=== PATIENT | male | born 1995 | race African-American/Black ===

== ENCOUNTER 2017-03-30 13:54 | Emergency (ER) | payer SELFPAY ==
[~2017-03-30] VITALS: Ht 188 cm; Wt 115.7 kg
--- NOTE | 2017-03-30 14:30 | ED EENT ---
History of Present Illness General Chief Complaint: Oral/Throat Problems Stated Complaint: SORE THROAT,FEVER Nursing Triage Note: ARRIVED VIA AMB TO ROOM 08 WITH COMPLAINTS OF FEVER, SORE THROAT, AND HEADACHE STARTING LAST NOC. Source: patient, other (significant other) Exam Limitations: no limitations History of Present Illness Time seen by provider: 14:29 Initial Comments 22-year-old male patient presents to the emergency department with complaints of fever and sore throat beginning Friday. Initially had reported onset as last night, but significant other reports symptoms actually began Friday morning. States his fever was 104 degrees last night. Patient is able to tolerated solids and liquids. Timing/Duration: abrupt, other (onset on Friday morning.) Location: throat Prearrival Treatment: over the counter meds (last dose of tylenol or motrin was last night.) Presenting Symptoms/Injuries: fever and sore throat Modifying Factors: Worse With Other (worse with swallowing) Allergies and Home Medications Allergies Coded Allergies: No Known Drug Allergies (Unverified , 03/30/17) Home Medications Cefdinir 300 Mg Capsule, 300 MG PO BID, #20 Ref 0 Prescribed by: NEERAJ FLORES on 03/30/17 1533 Tramadol HCl 50 Mg Tablet, 50 MG PO Q6H PRN for pain, #10 Ref 0 Prescribed by: NEERAJ FLORES on 03/30/17 1708 Review of Systems Constitutional: chills, fever, malaise Eyes: No Symptoms Reported Ears: No Symptoms Reported Nose: no symptoms reported Mouth: no symptoms reported Throat: see HPI, pain, swelling (tonsillar swelling), denies neck stiffness, painful swallowing, denies difficulty with fluids Respiratory: No cough, No short of breath, No stridor, No wheezing Cardiovascular: no symptoms reported Gastrointestinal: No abdominal pain, No constipation, No diarrhea, loss of appetite, No nausea, No vomiting Musculoskeletal: no symptoms reported Skin: no symptoms reported Neurological: No Symptoms Reported, Headache Immunological/Allergic: no symptoms reported All Other Systems Reviewed Negative Unless Noted: Yes (Negative excepted noted.) Past Hrwtfrn-Jtxhrp-Csqwjk Hx Patient Social History Alcohol Use: Occasionally Uses Recreational Drug Use: Yes Drug of Choice: POT Smoking Status: Never a Smoker Recent Foreign Travel: No Contact w/Someone Who Travel: No Recent Infectious Disease Expo: No Recent Hopitalizations: No Surgeries History of Surgeries: No Respiratory History of Respiratory Disorde: No Cardiovascular History of Cardiac Disorders: No Neurological History of Neurological Disord: No Genitourinary History of Genitourinary Disor: No Gastrointestinal History of Gastrointestinal Di: No Musculoskeletal History of Musculoskeletal Dis: No Endocrine History of Endocrine Disorders: No HEENT History of HEENT Disorders: No Cancer History of Cancer: No Psychosocial History of Psychiatric Problem: No Integumentary History of Skin or Integumenta: No Reviewed Nursing Assessment Reviewed/Agree w Nursing PMH: Yes Family Medical History Significant Family History: No Pertinent Family Hx Physical Exam Vital Signs Vital Sign - Last 12Hours 03/30/17 14:20 Temp 101.9 Pulse 101 Resp 16 B/P (MAP) 147/85 Pulse Ox 100 O2 Delivery Room Air General Appearance: WD/WN, no apparent distress Eyes: bilateral eye normal inspection, bilateral eye PERRL, bilateral eye EOMI Ears: bilateral ear auricle normal, bilateral ear canal normal, bilateral ear TM normal Nose: normal inspection Mouth/Throat: normal mouth inspection, tonsillar exudate, tonsillar swelling, No trismus, No uvula swelling, No voice changes, other (pharyngeal erythema noted.) Neck: full range of motion, supple, other (bilateral anterior cervical lymphadenopathy, tender to palpation.) Cardiovascular: normal peripheral pulses, no edema, no murmur, tachycardia Respiratory: lungs clear, normal breath sounds, no respiratory distress, no accessory muscle use Gastrointestinal: non tender, soft Neurologic/Psychiatric: alert, normal mood/affect, oriented x 3 Skin: normal color, warm/dry Progress/Results/Core Measures Results/Orders Lab Results Laboratory Tests Test 03/30/17 14:25 03/30/17 14:50 03/30/17 16:30 Range/Units Group A Streptococcus Screen NEGATIVE NEGATIVE White Blood Count 11.3 H 4.3-11.0 10^3/uL Red Blood Count 5.02 4.35-5.85 10^6/uL Hemoglobin 14.0 13.3-17.7 G/DL Hematocrit 41 40-54 % Mean Corpuscular Volume 81 80-99 FL Mean Corpuscular Hemoglobin 28 25-34 PG Mean Corpuscular Hemoglobin Concent 34 32-36 G/DL Red Cell Distribution Width 12.7 10.0-14.5 % Platelet Count 203 130-400 10^3/uL Mean Platelet Volume 9.6 7.4-10.4 FL Neutrophils (%) (Auto) 84 H 42-75 % Lymphocytes (%) (Auto) 7 L 12-44 % Monocytes (%) (Auto) 9 0-12 % Eosinophils (%) (Auto) 0 0-10 % Basophils (%) (Auto) 0 0-10 % Neutrophils # (Auto) 9.5 H 1.8-7.8 X 10^3 Lymphocytes # (Auto) 0.8 L 1.0-4.0 X 10^3 Monocytes # (Auto) 1.0 0.0-1.0 X 10^3 Eosinophils # (Auto) 0.0 0.0-0.3 10^3/uL Basophils # (Auto) 0.0 0.0-0.1 10^3/uL Neutrophils % (Manual) 81 % Lymphocytes % (Manual) 14 % Monocytes % (Manual) 4 % Basophils % (Manual) 1 % Blood Morphology Comment NORMAL Prothrombin Time 14.6 12.2-14.7 SEC INR Comment 1.1 0.8-1.4 Activated Partial Thromboplast Time 34 24-35 SEC Sodium Level 136 135-145 MMOL/L Potassium Level 3.4 L 3.6-5.0 MMOL/L Chloride Level 103 98-107 MMOL/L Carbon Dioxide Level 20 L 21-32 MMOL/L Anion Gap 13 5-14 MMOL/L Blood Urea Nitrogen 10 7-18 MG/DL Creatinine 1.15 0.60-1.30 MG/DL Estimat Glomerular Filtration Rate > 60 BUN/Creatinine Ratio 9 Glucose Level 87 70-105 MG/DL Lactic Acid Level 1.66 0.50-2.00 MMOL/L Calcium Level 9.7 8.5-10.1 MG/DL Total Bilirubin 1.7 H 0.1-1.0 MG/DL Aspartate Amino Transf (AST/SGOT) 18 5-34 U/L Alanine Aminotransferase (ALT/SGPT) 23 0-55 U/L Alkaline Phosphatase 82 40-136 U/L Total Protein 7.6 6.4-8.2 GM/DL Albumin 4.2 3.2-4.5 GM/DL Urine Color YELLOW Urine Clarity CLEAR Urine pH 8 5-9 Urine Specific Cooks 1.010 L 1.016-1.022 Urine Protein 1+ H NEGATIVE Urine Glucose (UA) NEGATIVE NEGATIVE Urine Ketones 1+ H NEGATIVE Urine Nitrite NEGATIVE NEGATIVE Urine Bilirubin NEGATIVE NEGATIVE Urine Urobilinogen 8 H NORMAL MG/DL Urine Leukocyte Esterase 1+ H NEGATIVE Urine RBC (Auto) NEGATIVE NEGATIVE Urine RBC NONE /HPF Urine WBC 2-5 /HPF Urine Squamous Epithelial Cells 5-10 /HPF Urine Crystals NONE /LPF Urine Bacteria NEGATIVE /HPF Urine Casts NONE /LPF Urine Mucus NEGATIVE /LPF Urine Culture Indicated NO My Orders Orders - NEERAJ FLORES Rapid Strep A Screen (03/30/17 14:18) Cbc With Automated Diff (03/30/17 14:36) Comprehensive Metabolic Panel (03/30/17 14:36) Lactic Acid Analyzer (03/30/17 14:36) Blood Culture (03/30/17 14:36) Ua Culture If Indicated (03/30/17 14:36) Protime With Inr (03/30/17 14:36) Partial Thromboplastin Time (03/30/17 14:36) O2 (03/30/17 14:36) Acetaminophen Tablet (Tylenol Tablet) (03/30/17 14:45) Saline Lock/Iv-Start (03/30/17 14:36) Ns Iv 1000 Ml (Sodium Chloride 0.9%) (03/30/17 14:45) Vital Signs Adult Sepsis Patie Q1HR (03/30/17 14:36) Ceftriaxone Injection (Rocephin Injectio (03/30/17 14:36) Ketorolac Injection (Toradol Injection) (03/30/17 14:36) Manual Differential (03/30/17 14:50) General/Regular (03/30/17 Lunch) Medications Given in ED Current Medications Medications Dose Ordered Sig/Jack Route Start Time Stop Time Status Last Admin Dose Admin Acetaminophen 1,000 mg ONCE PRN PO 03/30/17 14:45 03/30/17 14:51 DC 03/30/17 14:51 1,000 MG Sodium Chloride 3,500 ml @ 1,750 mls/hr PRN PRN IV 03/30/17 14:45 03/30/17 17:15 DC 03/30/17 15:02 1,750 MLS/HR Vital Signs/I&O Vital Sign - Last 12Hours 03/30/17 03/30/17 14:20 17:15 Temp 101.9 98.9 Pulse 101 96 Resp 16 18 B/P (MAP) 147/85 Pulse Ox 100 96 O2 Delivery Room Air Blood Pressure Mean: 105 Departure Communication (Admissions) Progress Notes All laboratory findings were discussed with the patient. Patient reports feeling better with medications and IV fluids. Patient was given 1 g Rocephin IV while in the emergency department. Patient was able to eat and drink in the emergency department without difficulty. Plan for discharge to home. All return precautions were discussed with the patient as described in the discharge instructions of this report. Patient voices understanding and agrees with the treatment plan. Impression Impression: Primary Impression: Acute tonsillitis, unspecified Qualified Codes: J03.90 - Acute tonsillitis, unspecified Additional Impression: Volume depletion Disposition: HOME, SELF-CARE Condition: Improved Departure-Patient Inst. Decision time for Depature: 15:32 Referrals: NO,LOCAL PHYSICIAN (PCP/Family) Primary Care Physician Patient Instructions: Strep Throat (DC) Add. Discharge Instructions: All discharge instructions reviewed with patient and/or family. Voiced understanding. Medications as directed. Tylenol extra strength over-the- counter as directed by the steam finisher for pain, headache, or fever. Ibuprofen 800 mg by mouth every 8 hours as needed for pain, headache, or fever. Drink plenty of fluids. Warm salt water gargles as needed for pain. Over-the -counter throat lozenges and sprays as needed. Follow-up with your family practitioner of choice for recheck if no improvement in symptoms. Return to the emergency department for worsened pain, fever, difficulty swallowing, difficulty breathing, or any other concerns. Scripts Tramadol HCl (Tramadol HCl) 50 Mg Tablet 50 MG PO Q6H Y for pain, #10 TAB 0 Refills Prov: NEERAJ FLORES 03/30/17 Cefdinir (Cefdinir) 300 Mg Capsule 300 MG PO BID, #20 CAP 0 Refills Prov: NEERAJ FLORES 03/30/17 Work/School Note: Local Medical Staff Listing, Work Release Form Date Seen in the Emergency Department: Mar 30, 2017 Return to Work: Apr 01, 2017 Restrictions: Return-No Fever (24hrs) NEERAJ FLORES Mar 30, 2017 14:30
[2017-03-30] MEDS ORDERED: KETOROLAC 30 MG/ML VIAL IVP STA (14:36)
[2017-03-30] MEDS ORDERED: cefTRIAXone 1 GM (ROCEPHIN) VIAL IV STA (14:36)
[2017-03-30] MEDS ORDERED: NS IV 1000 ML 3,500 ML IV PRN (14:45)
[2017-03-30] MEDS ORDERED: ACETAMINOPHEN 500 MG TAB (TYLENOL) PO PRN (14:45)
[2017-03-30 15:03] LABS: BASOPHILS % (AUTO) 0 % (0-10); EOSINOPHILS % (AUTO) 0 % (0-10); LYMPHOCYTES # (AUTO) 0.8 X 10^3 (1.0-4.0); LYMPHOCYTES % (AUTO) 7 % (12-44); MEAN CORPUSCULAR HEMOGLOBIN 28 PG (25-34); MEAN CORPUSCULAR HGB CONC 34 G/DL (32-36); MEAN CORPUSCULAR VOLUME 81 FL (80-99); MEAN PLATELET VOLUME 9.6 FL (7.4-10.4); MONOCYTES % (AUTO) 9 % (0-12); NEUTROPHILS # (AUTO) 9.5 X 10^3 (1.8-7.8); NEUTROPHILS % (AUTO) 84 % (42-75); PLATELET COUNT 203 10^3/uL (130-400); RED BLOOD COUNT 5.02 10^6/uL (4.35-5.85); RED CELL DISTRIBUTION WIDTH 12.7 % (10.0-14.5); WHITE BLOOD COUNT 11.3 10^3/uL (4.3-11.0)
[2017-03-30 15:16] LABS: INR 1.1 (0.8-1.4); PROTHROMBIN TIME PATIENT 14.6 SEC (12.2-14.7)
[2017-03-30 15:27] LABS: ALANINE AMINOTRANSFERASE 23 U/L (0-55); ALBUMIN 4.2 GM/DL (3.2-4.5); ANION GAP 13 MMOL/L (5-14); ASPARTATE AMINO TRANSFERASE 18 U/L (5-34); BILIRUBIN,TOTAL 1.7 MG/DL (0.1-1.0); BLOOD UREA NITROGEN 10 MG/DL (7-18); BUN/CREATININE RATIO 9; CALCIUM 9.7 MG/DL (8.5-10.1); CARBON DIOXIDE 20 MMOL/L (21-32); CHLORIDE 103 MMOL/L (98-107); CREATININE SERUM 1.15 MG/DL (0.60-1.30); GFR ESTIMATED > 60; GLUCOSE 87 MG/DL (70-105); POTASSIUM 3.4 MMOL/L (3.6-5.0); SODIUM 136 MMOL/L (135-145); TOTAL PROTEIN 7.6 GM/DL (6.4-8.2)
[2017-03-30] MEDS ORDERED: CEFD300C3 PO (15:33)
[2017-03-30 15:43] LABS: BASOPHILS % (MANUAL) 1 %; LYMPHOCYTES % (MANUAL) 14 %; NEUTROPHILS % (MANUAL) 81 %
[2017-03-30 16:40] LABS: BILIRUBIN,URINE NEGATIVE (NEGATIVE); KETONES,URINE 1+ (NEGATIVE); LEUKOCYTE ESTERASE ,URINE 1+ (NEGATIVE); NITRITE,URINE NEGATIVE (NEGATIVE); PH,URINE 8 (5-9); PROTEIN,URINE 1+ (NEGATIVE); UROBILINOGEN,URINE 8 MG/DL (NORMAL)
[2017-03-30] MEDS ORDERED: TRAM50TA2 PO (17:08)
[2017-03-30 17:15] VITALS: BP 145/76
== END 2017-03-30 17:15 | disposition home or self-care (01) ==
LOC: ER 13:59
DX: J03.90 Acute tonsillitis, unspecified (principal); E86.9 Volume depletion, unspecified
CPT/HCPCS: 36415; 80053; 81000; 83605; 85007; 85027; 85610; 85730; 87040; 87430; 96361; 96365; 96375

== ENCOUNTER 2021-03-12 20:03 | Emergency (ER) | payer SELFPAY ==
[~2021-03-12] VITALS: Ht 187.9 cm; Wt 145.0 kg
[~2021-03-12 20:03] MED LIST: CEFD300C3 PO; TRM50T PO
--- NOTE | 2021-03-12 20:43 | ED General ---
General Stated Complaint: FEVER/BODY ACHES/TONGUE SORES Source of Information: Patient Exam Limitations: No Limitations History of Present Illness Date Seen by Provider: Mar 12, 2021 Time Seen by Provider: 20:43 Initial Comments To ER with fever body aches diarrhea sores on his tongue. This began on Friday he was seen at [facility] and had a negative Covid negative strep test. Comes in today for failure to improve. Temperature up to 102 currently. Timing/Duration: 1-2 Days Severity: Moderate Associated Systoms: Denies Symptoms Allergies and Home Medications Allergies Coded Allergies: No Known Drug Allergies (Unverified , 03/30/17) Home Medications Cefdinir 300 Mg Capsule, 300 MG PO BID Prescribed by: NEERAJ FLORES on 03/30/17 1533 Tramadol HCl 50 Mg Tablet, 50 MG PO Q6H PRN for pain Prescribed by: NEERAJ FLORSE on 03/30/17 1708 Patient Home Medication List Home Medication List Reviewed: Yes Review of Systems Review of Systems Constitutional: see HPI EENTM: see HPI, throat pain Respiratory: no symptoms reported Cardiovascular: no symptoms reported Genitourinary: no symptoms reported Musculoskeletal: no symptoms reported Skin: no symptoms reported Psychiatric/Neurological: No Symptoms Reported Hematologic/Lymphatic: No Symptoms Reported Immunological/Allergic: no symptoms reported Past Izyqwlr-Xgfvss-Crcofx Hx Past Medical History Surgeries: No Respiratory: No Cardiac: No Neurological: No Genitourinary: No Gastrointestinal: No Musculoskeletal: No Endocrine: No HEENT: No Cancer: No Psychosocial: No Integumentary: No Family Medical History No Pertinent Family Hx Physical Exam Vital Signs Vital Signs - First Documented 03/12/21 20:27 Temp 39.0 Pulse 104 Resp 20 B/P (MAP) 173/101 (125) Pulse Ox 97 O2 Delivery Room Air Capillary Refill : Height, Weight, BMI Height: 6'2.00" Weight: 255lbs. oz. [id number]; BMI Method:Stated General Appearance: No Apparent Distress, WD/WN Eyes: Bilateral Eye Normal Inspection, Bilateral Eye PERRL, Bilateral Eye EOMI HEENT: PERRL/EOMI, TMs Normal, Other (He did test positive for strep but is oropharynx does not have the typical appearance of strep. There are ulcerative lesions with an erythematous border on the lateral aspects of the tongue and on the soft palate and tonsillar pillars. This looks like a herpetic stomatitis.) Neck: Lymphadenopathy (L), Lymphadenopathy (R) Respiratory: No Accessory Muscle Use, No Respiratory Distress Gastrointestinal: Non Tender, Soft Extremity: Normal Capillary Refill, Normal Inspection Neurologic/Psychiatric: Alert, Oriented x3 Skin: Normal Color, Warm/Dry Progress/Results/Core Measures Suspected Sepsis SIRS Temperature: Pulse: Respiratory Rate: Blood Pressure / Mean: Results/Orders Lab Results Laboratory Tests Test 03/12/21 20:35 Range/Units Influenza Type A (RT-PCR) Not Detected Not Detecte Influenza Type B (RT-PCR) Not Detected Not Detecte SARS-CoV-2 RNA (RT-PCR) Not Detected Not Detecte Group A Streptococcus Screen POSITIVE H NEGATIVE My Orders Orders - MIKALA OLIVER APRN Covid 19 Inhouse Test (03/12/21 20:32) Rapid Strep A Screen (03/12/21 20:32) Influenza A And B By Pcr (03/12/21 20:32) Ed Iv/Invasive Line Start (03/12/21 20:32) Ibuprofen Tablet (Motrin Tablet) (03/12/21 20:45) Penicillin Vk Tablet (Veetid Tablet) (03/12/21 21:15) Prednisone Tablet (Deltasone Tablet) (03/12/21 21:15) Acyclovir Capsule/Tablet (Zovirax Caps (03/12/21 21:15) Antacid Suspension (Mylanta Suspension (03/12/21 21:15) Lidocaine 2% Viscous 15 Ml (Xylocaine Vi (03/12/21 21:15) Medications Given in ED Current Medications Medications Dose Ordered Sig/Jack Route Start Time Stop Time Status Last Admin Dose Admin Ibuprofen 800 mg ONCE ONCE PO 03/12/21 20:45 03/12/21 20:46 DC 03/12/21 20:47 800 MG Vital Signs/I&O 03/12/21 03/12/21 20:27 20:47 Temp 39.0 38.9 Pulse 104 Resp 20 B/P (MAP) 173/101 (125) Pulse Ox 97 O2 Delivery Room Air Capillary Refill : Departure Impression Primary Impression: Herpetic stomatitis Additional Impression: Streptococcal pharyngitis Disposition: 01 HOME, SELF-CARE Condition: Stable Departure-Patient Inst. Decision time for Depature: 21:15 Referrals: NO,LOCAL PHYSICIAN (PCP/Family) Primary Care Physician Patient Instructions: Gingivostomatitis, Child (DC), Strep Throat ED Add. Discharge Instructions: 1. Tylenol and ibuprofen for fevers or discomfort. Return to ER for any concerns. Follow-up with your doctor next week. Scripts Prednisone (Prednisone) 20 Mg Tab 40 MG PO DAILY, #6 TAB 0 Refills Prov: MIKALA OLIVER APRN 03/12/21 Amoxicillin (Amoxicillin) 500 Mg Capsule 500 MG PO TID, #21 CAP 0 Refills Prov: MIKALA OLIVER APRN 03/12/21 Acyclovir (Acyclovir) 400 Mg Tablet 400 MG PO 5XD, #15 TAB Prov: MIKALA OLIVER APRN 03/12/21 Work/School Note: Work Release Form Date Seen in the Emergency Department: Mar 12, 2021 Return to Work: Mar 14, 2021 MIKALA OLIVER APRN Mar 12, 2021 20:43
[2021-03-12] MEDS ORDERED: IBUPROFEN 800 MG (MOTRIN) TAB PO ONE (20:45)
[2021-03-12] MEDS ORDERED: ANTACID SUSP 30 ML UDC (MYLANTA) PO ONE (21:15)
[2021-03-12] MEDS ORDERED: ACYCLOVIR 400 MG TABLET (ZOVIRAX) PO SCH (21:15)
[2021-03-12] MEDS ORDERED: LIDOCAINE 2% VISCOUS 15 ML UDC PO ONE (21:15)
[2021-03-12] MEDS ORDERED: predniSONE 20 MG TAB PO ONE (21:15)
[2021-03-12] MEDS ORDERED: PENICILLIN V K 250 MG TAB PO ONE (21:15)
[2021-03-12] MEDS ORDERED: AMOX500C2 PO (21:17)
[2021-03-12] MEDS ORDERED: ACYC400T21 PO (21:17)
[2021-03-12] MEDS ORDERED: PRD20T PO (21:17)
[2021-03-12 22:43] VITALS: BP 156/88
== END 2021-03-12 21:30 | disposition home or self-care (01) ==
LOC: EDUNIT# 20:03 → ER 20:04
DX: B00.2 Herpesviral gingivostomatitis and pharyngotonsillitis (principal); J02.0 Streptococcal pharyngitis; Z20.822 Contact with and (suspected) exposure to COVID-19
CPT/HCPCS: 87430; 87636; 99284

== ENCOUNTER 2022-03-04 08:43 | Emergency (ER) | payer SELFPAY ==
[~2022-03-04] VITALS: Ht 187.9 cm; Wt 132.4 kg
[~2022-03-04 08:43] MED LIST changes: +ACYC400T21 PO; +AMOX500C2 PO; +PRD20T PO
[2022-03-04 08:54] VITALS: BP 158/92
--- NOTE | 2022-03-04 09:11 | ED Chest Pain ---
General Chief Complaint: Chest Wall Stated Complaint: CHEST DISCOMFORT Nursing Triage Note: Pt states that his had Covid about a month ago, he became symptomatic shortly after but never tested at that time. Since then he has had intermittent chest pain, shortness of breath and palpitations for the last 3 weeks. Source: patient Exam Limitations: no limitations History of Present Illness Date Seen by Provider: Mar 04, 2022 Time Seen by Provider: 08:52 Initial Comments Patient is a 27-year-old male who presents to the emergency department today with a chief complaint of intermittent chest discomfort over the course of the last 3 to 4 weeks. He states that his had COVID about a month ago. He became symptomatic but never tested positive. He had a negative test about a week ago. He states that intermittently he has this chest discomfort that feels like a "catch" and it might last 30 to 45 minutes at a time. 1 day last week he had an episode of tachycardia in the 170s. He feels short of breath with his chest pain. Never breaks out into a sweat, is never nauseated. He has no family history of early coronary artery disease. He denies any recent travel or prolonged immobility. No leg swelling or calf cramping. He smokes marijuana every other day but no cigarettes. No other illicit drugs. Currently having some discomfort at a "1". A little hypertensive in the 150s over 90 range, oxygen saturations are 98%, he is not tachycardic his heart rate is 72 No other complaints of illness or injury. All other review of systems reviewed and negative except as stated Timing/Duration: other (3 weeks or so) Severity/Quality: mild, other ("catch") Location: central Radiation: no radiation Prior CP/Workup: no prior chest pain, no prior cardiac workup ASA po LUMBER KILN OPERATOR: No NTG SL LUMBER KILN OPERATOR: No Associated Symptoms: shortness of breath Allergies and Home Medications Allergies Coded Allergies: No Known Drug Allergies (Unverified , 03/30/17) Patient Home Medication List Home Medication List Reviewed: Yes Acyclovir (Acyclovir) 400 Mg Tablet, 400 MG PO 5XD Prescribed by: MIKALA OLIVER on 03/12/212116 Amoxicillin (Amoxicillin) 500 Mg Capsule, 500 MG PO TID Prescribed by: MIKALA OLIVER on 03/12/212116 Cefdinir (Cefdinir) 300 Mg Capsule, 300 MG PO BID Prescribed by: NEERAJ FLORES on 03/30/17 1533 Prednisone (Prednisone) 20 Mg Tab, 40 MG PO DAILY Prescribed by: MIKALA OLIVER on 03/12/212116 Tramadol HCl (Tramadol HCl) 50 Mg Tablet, 50 MG PO Q6H PRN for pain Prescribed by: NEERAJ FLORES on 03/30/17 1708 Review of Systems Review of Systems Constitutional: see HPI EENTM: No Symptoms Reported Respiratory: Shortness of Air Cardiovascular: Chest Pain Gastrointestinal: No Symptoms Reported Genitourinary: No Symptoms Reported Musculoskeletal: no symptoms reported Skin: no symptoms reported All Other Systems Reviewed Negative Unless Noted: Yes Past Ymvcpoo-Ldpbbq-Shqoji Hx Patient Social History Tobacco Use?: No Use of E-Cig and/or Vaping dev: No Substance use?: Yes Substance type: Marijuana Substance frequency: Daily Alcohol Use?: No Pt feels they are or have been: No Past Medical History Surgeries: No Respiratory: No Cardiac: No Neurological: No Genitourinary: No Gastrointestinal: No Musculoskeletal: No Endocrine: No HEENT: No Cancer: No Psychosocial: No Integumentary: No Family Medical History No Pertinent Family Hx Physical Exam Vital Signs Vital Signs - First Documented 03/04/22 08:54 Temp 36.1 Pulse 76 Resp 20 B/P (MAP) 158/92 (114) Pulse Ox 98 O2 Delivery Room Air Capillary Refill : Less Than 3 Seconds Height, Weight, BMI Height: 6'2.00" Weight: 255lbs. oz. 115.379123sj; 37.00 BMI Method:Stated General Appearance: No Apparent Distress, WD/WN HEENT: PERRL/EOMI Neck: Normal Inspection Respiratory: Lungs Clear, Normal Breath Sounds, No Accessory Muscle Use, No Respiratory Distress Cardiovascular: Regular Rate, Rhythm, Normal Peripheral Pulses Gastrointestinal: Normal Bowel Sounds, Non Tender, Soft Extremity: Normal Capillary Refill, Normal Inspection, Normal Range of Motion, Non Tender, No Calf Tenderness, No Pedal Edema Neurologic/Psychiatric: Alert, Oriented x3, No Motor/Sensory Deficits, Normal Mood/Affect, drier attendant II-XII Norm as Tested Skin: Normal Color, Warm/Dry Progress/Results/Core Measures Results/Orders Lab Results Laboratory Tests Test 03/04/22 09:22 Range/Units White Blood Count 5.6 4.3-11.0 10^3/uL Red Blood Count 5.17 4.30-5.52 10^6/uL Hemoglobin 14.5 13.3-17.7 g/dL Hematocrit 43 40-54 % Mean Corpuscular Volume 82 80-99 fL Mean Corpuscular Hemoglobin 28 25-34 pg Mean Corpuscular Hemoglobin Concent 34 32-36 g/dL Red Cell Distribution Width 12.3 10.0-14.5 % Platelet Count 266 130-400 10^3/uL Mean Platelet Volume 9.5 9.0-12.2 fL Immature Granulocyte % (Auto) 0 % Neutrophils (%) (Auto) 71 42-75 % Lymphocytes (%) (Auto) 22 12-44 % Monocytes (%) (Auto) 6 0-12 % Eosinophils (%) (Auto) 1 0-10 % Basophils (%) (Auto) 0 0-10 % Neutrophils # (Auto) 4.0 1.8-7.8 10^3/uL Lymphocytes # (Auto) 1.2 1.0-4.0 10^3/uL Monocytes # (Auto) 0.4 0.0-1.0 10^3/uL Eosinophils # (Auto) 0.0 0.0-0.3 10^3/uL Basophils # (Auto) 0.0 0.0-0.1 10^3/uL Immature Granulocyte # (Auto) 0.0 0.0-0.1 10^3/uL D-Dimer <= 0.27 0.00-0.49 UG/ML Sodium Level 141 135-145 MMOL/L Potassium Level 3.7 3.6-5.0 MMOL/L Chloride Level 108 H 98-107 MMOL/L Carbon Dioxide Level 22 21-32 MMOL/L Anion Gap 11 5-14 MMOL/L Blood Urea Nitrogen 11 7-18 MG/DL Creatinine 1.07 0.60-1.30 MG/DL Estimat Glomerular Filtration Rate 97 BUN/Creatinine Ratio 10 Glucose Level 95 70-105 MG/DL Calcium Level 9.9 8.5-10.1 MG/DL My Orders Orders - PRADEEP NOEL MD Ed Iv/Invasive Line Start (03/04/22 09:06) Cbc With Automated Diff (03/04/22 09:06) Basic Metabolic Panel (03/04/22 09:06) Fibrin Degradation Products (03/04/22 09:06) Chest 1 View, Ap/Pa Only (03/04/22 09:06) Ekg Tracing (03/04/22 09:07) Vital Signs/I&O 03/04/22 03/04/22 03/04/22 08:54 09:30 10:06 Temp 36.1 Pulse 76 60 58 Resp 20 13 13 B/P (MAP) 158/92 (114) 150/92 100/87 Pulse Ox 98 98 98 O2 Delivery Room Air Room Air Room Air Blood Pressure Mean: 114 Initial ECG Impression Date: Mar 04, 2022 Initial ECG Impression Time: 08:54 Initial ECG Rate: 72 Initial ECG Rhythm: Normal Sinus Comment [id number] Departure Impression Primary Impression: Chest pain Qualified Codes: R07.9 - Chest pain, unspecified Additional Impression: High blood pressure Qualified Codes: I10 - Essential (primary) hypertension Disposition: 01 HOME, SELF-CARE Condition: Stable Departure-Patient Inst. Decision time for Depature: 10:22 Referrals: [facility] [place] PHYSICIAN (PCP) Primary Care Physician Patient Instructions: Chest Pain That Is Not Caused by the Heart (DC), High Blood Pressure ED Add. Discharge Instructions: Drink plenty of fluids to stay well-hydrated. Try and cut back on the amount of marijuana you are smoking as this could irritate your breathing and chest You need to follow-up with [facility] regarding your blood pressure. If you have a return of chest pain especially with shortness of breath, nausea, sweating or change in location of the pain please come back to the emergency room for reevaluation. Copy Copies To 1: STEVEN HERNDON KATHRYN M MD Mar 04, 2022 09:11
--- NOTE | 2022-03-04 09:26 | Diagnostic Imaging Report ---
Indication: Chest pain, shortness of breath. Time of Exam: 9:18 AM No prior studies are available for comparison. Findings: The heart size is normal. The pulmonary vascularity is unremarkable. The lungs are clear. No infiltrate, effusion or pneumothorax is detected. Impression: No acute cardiopulmonary process is detected. Dictated by: Dictated on workstation # [id number]
[2022-03-04 09:32] LABS: BASOPHILS % (AUTO) 0 % (0-10); EOSINOPHILS % (AUTO) 1 % (0-10); HEMATOCRIT 43 % (40-54); HEMOGLOBIN 14.5 g/dL (13.3-17.7); LYMPHOCYTES # (AUTO) 1.2 10^3/uL (1.0-4.0); LYMPHOCYTES % (AUTO) 22 % (12-44); MEAN CORPUSCULAR HEMOGLOBIN 28 pg (25-34); MEAN CORPUSCULAR HGB CONC 34 g/dL (32-36); MEAN CORPUSCULAR VOLUME 82 fL (80-99); MEAN PLATELET VOLUME 9.5 fL (9.0-12.2); MONOCYTES # (AUTO) 0.4 10^3/uL (0.0-1.0); MONOCYTES % (AUTO) 6 % (0-12); NEUTROPHILS % (AUTO) 71 % (42-75); PLATELET COUNT 266 10^3/uL (130-400); WHITE BLOOD COUNT 5.6 10^3/uL (4.3-11.0)
[2022-03-04 09:43] LABS: POTASSIUM 3.7 MMOL/L (3.6-5.0)
[2022-03-04 09:44] LABS: CALCIUM 9.9 MG/DL (8.5-10.1)
[2022-03-04 09:48] LABS: CREATININE SERUM 1.07 MG/DL (0.60-1.30)
== END 2022-03-04 10:37 | disposition home or self-care (01) ==
LOC: EDUNIT# 08:43 → ER 08:45
DX: I10 Essential (primary) hypertension (principal); Z28.310 Unvaccinated for COVID-19
CPT/HCPCS: 36415; 71045; 80048; 85025; 85379; 93005